=== PATIENT | female | born 1960 | race African-American/Black ===

== ENCOUNTER → 2018-06-30 15:24 | Outpatient (CLI) | payer OTHER | END | disposition home or self-care (01) | LOC: D.LABREF 15:24 | DX: L98.8 Other specified disorders of the skin and subcutaneous tissue (principal) ==

== ENCOUNTER → 2018-07-06 18:03 | Outpatient (CLI) | payer OTHER | END | disposition home or self-care (01) | LOC: D.LABREF 18:03 | DX: L02.211 Cutaneous abscess of abdominal wall (principal) ==

== ENCOUNTER → 2019-10-12 10:00 | Outpatient (CLI) | payer OTHER | END | disposition home or self-care (01) | LOC: D.MAMMO 10:00 | PROVIDERS: ATTEND Nurse Practitioner Family | DX: Z12.31 Encounter for screening mammogram for malignant neoplasm of breast (principal) ==